=== PATIENT | male | born 1985 | race Caucasian/White ===

== ENCOUNTER 2019-03-07 09:09 | Day surgery (SDC) | payer OTHER ==
[2019-03-07] MEDS ORDERED: Sodium Chloride 0.9% 100 ML ONE (10:17)
[2019-03-07] MEDS ORDERED: cefOXitin 2 GM VIAL ONE (10:17)
[2019-03-07] MEDS ORDERED: Midazolam HCl 2 mg/2 ml Vial ONE (10:29)
[2019-03-07] MEDS ORDERED: Fentanyl 250 MCG/5 ML VIAL ONE (10:29)
[2019-03-07] MEDS ORDERED: Bupivacaine/Epinephrine 0.25% 30 ML VIAL ONE (11:16)
--- NOTE | 2019-03-07 11:26 | HP ---
CHIEF COMPLAINT: Right upper quadrant abdominal pain. HISTORY OF PRESENT ILLNESS: This is a 33-year-old male, who developed severe mid epigastric and right upper quadrant pain about 1:00 a.m. No radiation. He has had previous episodes. This was associated with a lot of nausea. No vomiting. Father had this and had his gallbladder removed when he was younger. Apparently, he has been having some episodic chest pain when he had a cardiac workup that was negative. PAST MEDICAL HISTORY: Otherwise healthy. PAST SURGICAL HISTORY: None. MEDICATIONS: He is on an anxiety medicine p.r.n. and a migraine headache medicine p.r.n. ALLERGIES: NO KNOWN DRUG ALLERGIES. SOCIAL HISTORY: He is . He works for [employer]. No tobacco. Social alcohol. FAMILY HISTORY: Gallbladder problems and heart disease. PHYSICAL EXAMINATION: VITAL SIGNS: Temperature 97.2, pulse 62, blood pressure 130/88. GENERAL: Thin male, in some discomfort. HEENT: No jaundice. LUNGS: Clear. HEART: Regular rate and rhythm. ABDOMEN: Soft, tender in the right upper quadrant. No distention. EXTREMITIES: Unremarkable. LABORATORY DATA: His LFTs are normal. His gallbladder ultrasound showed several small stones in the neck of the gallbladder with some mild wall thickening. ASSESSMENT: Early acute cholecystitis. PLAN: Laparoscopic cholecystectomy. CONSENT: Discussed planned procedure as well as risk of bleeding, infection, injury to bile duct, injury to bowel, need to open. He understands and gives informed consent. Job ID: [id number]
[2019-03-07] MEDS ORDERED: HYDROcodone/Acetaminophen 5/325 mg Tablet ONE (14:51)
[2019-03-07] MEDS ORDERED: Glycopyrrolate 0.2 MG/ML 5 ML SYRINGE ONE (15:49)
[2019-03-07] MEDS ORDERED: Dexamethasone 20 MG/5 ML VIAL ONE (15:49)
[2019-03-07] MEDS ORDERED: Ondansetron PF 4 MG/2 ML Vial ONE (15:49)
[2019-03-07] MEDS ORDERED: Lidocaine 1% PF 5 ML VIAL ONE (15:49)
[2019-03-07] MEDS ORDERED: Rocuronium Bromide 10 MG/ML (10ML VIAL) ONE (15:49)
[2019-03-07] MEDS ORDERED: PROPOFOL 200 MG/20 ML VIAL ONE (15:49)
--- NOTE | 2019-03-07 18:31 | OP ---
DATE OF PROCEDURE: 03/07/2019 PREOPERATIVE DIAGNOSIS: Symptomatic cholelithiasis. PROCEDURE PERFORMED: Laparoscopic cholecystectomy. INDICATIONS: A 33-year-old male, who presented to the emergency room with severe right upper quadrant pain, radiating to back, associated with nausea. Ultrasound showed two small filling defects in the neck of the gallbladder. FINDINGS: He had some adhesions to the lower gallbladder. The cystic duct was of small caliber. DESCRIPTION OF PROCEDURE: After informed consent was obtained, the patient was taken to the operating room, given general endotracheal anesthesia, placed in supine position. Abdomen was prepped and draped in usual fashion. Local anesthesia infiltrated subcutaneously and deep, and a subumbilical incision was performed. Subcu divided sharply. The fascia grasped and two stay sutures of 0 Vicryl placed in each side of midline. The midline incised. Digital palpation revealed no local adhesions. A blunt 12 mm trocar inserted. Pneumoperitoneum was created to a pressure of 15 mmHg. A 0 degree laparoscope inserted under direct vision. Three 5 mm ports were placed subcostally. The gallbladder grasped and advanced superiorly. Peritoneum lysed distally to reveal small cystic duct and artery. These were triply ligated with hemoclips and divided. The gallbladder removed from its fossa utilizing electrocautery, removed from the abdomen through the umbilical port. Hemostasis assured. Trocars and retractors removed. The fascia closed with interrupted 0 Vicryl suture. The skin closed with interrupted 4-0 Rapide. Dermabond applied. The patient tolerated the procedure well, transferred to Recovery in good condition. Sponge and needle count verified correct x2. Job ID: [id number]
--- NOTE | 2019-03-08 17:11 | EKG ---
Test Reason : PREOP Blood Pressure : / mmHG Vent. Rate : 044 BPM Atrial Rate : 044 BPM P-R Int : 146 ms QRS Dur : 088 ms QT Int : 466 ms P-R-T Axes : 067 076 056 degrees QTc Int : 398 ms Marked sinus bradycardia Abnormal ECG Confirmed by EDITA VÁSQUEZ ([id number] on 03/08/2019 5:11:08 PM Referred By: RAND Confirmed By:EDITA VÁSQUEZ
== END 2019-03-07 16:00 | disposition home or self-care (01) ==
LOC: SDC 09:09 → EEVIPCON 09:09 → SDC 16:00
PROVIDERS: ATTEND Surgery
PROC: 0FT44ZZ Resection of Gallbladder, Percutaneous Endoscopic Approach (ICD-10-PCS; principal; 2019-03-07)
DX: K80.12 Calculus of gallbladder with acute and chronic cholecystitis without obstruction (principal); K82.8 Other specified diseases of gallbladder; F41.9 Anxiety disorder, unspecified; G43.909 Migraine, unspecified, not intractable, without status migrainosus
CPT/HCPCS: 88304; 93005; 93010; J0694; J1100; J2001; J2250; J2405; J2704; J3010; J3490

== ENCOUNTER 2019-03-11 21:44 | Emergency (ER) | payer OTHER ==
[~2019-03-11 21:44] MED LIST: Iopamidol 370 76% 100 ML VIAL ONE; Iopamidol 370 76% 50 ML VIAL FS ONE
[2019-03-11] MEDS ORDERED: Ondansetron PF 4 MG/2 ML Vial ONE (22:02)
[2019-03-11 22:20] LABS: #Basophils 0.1 thou/uL (0.0-0.2); #Eosinphils 0.4 thou/uL (0.0-0.7); #Lymphocytes 2.1 thou/uL (1.20-3.40); #Monocytes 0.6 thou/uL (0.11-0.59); #Neutrophils 6.6 thou/uL (1.40-6.50); %Basophils 0.6 % (0.0-1.0); %Eosinophils 3.9 % (0.0-10.0); %Lymphocytes 21.6 % (21.0-51.0); Hemoglobin 12.9 g/dL (14.0-18.0); Mean Corpuscular HGB CONC 31.9 g/dL (32.0-36.0); Mean Corpuscular Hemoglobin 29.3 pg (27.0-31.0); Mean Corpuscular Volume 91.9 fL (78.0-98.0); Mean Platelet Volume 6.9 fL (7.4-10.4); Platelet Count 234 thou/uL (130-400); RBC Distribution Width 11.5 % (11.5-14.5); Red Blood Cell (RBC) Count 4.41 mill/uL (4.70-6.10); White Blood Cell (WBC) Count 9.7 thou/uL (4.8-10.8)
[2019-03-11 22:43] LABS: ALT (SGPT) 25 U/L (8-55); AST (SGOT) 18 U/L (5-34); Albumin 4.3 g/dL (3.5-5.0); Alkaline Phosphatase 29 U/L (40-150); Anion Gap 11 mmol/L (10-20); BUN (Urea Nitrogen) 14 mg/dL (8.9-20.6); Bilirubin, Total 0.5 mg/dL (0.2-1.2); Calc. Creatinine Clearance 0 mL/min (70-130); Carbon Dioxide 28 mmol/L (22-29); Chloride 104 mmol/L (98-107); Estimated GFR-MDRD Greater than 90; Globulin 2.5 g/dL (2.4-3.5); Glucose 104 mg/dL (70-105); Potassium 3.6 mmol/L (3.5-5.1); Protein, Total 6.8 g/dL (6.0-8.3); Sodium 139 mmol/L (136-145)
--- NOTE | 2019-03-12 07:29 | CT ---
ABDOMEN AND PELVIS CT WITH CONTRAST: Date: 03/11/19 INDICATION: Emergency exam performed for near syncope. Pain. FINDINGS: Mild volume loss at the lung bases is present, evidence of prior cholecystectomy. There is free air o f the abdomen, which is within appropriate volume for provided history of recent intra-abdominal surg evelyn. There is mild fluid, as well as fat stranding, related to the patient's recent cholecystectomy. Contrast opacified small bowel is normal in caliber. There is a moderate volume of retained fecal mat erial throughout the colon. Abdominal aorta is normal in caliber. No acute abnormality of the solid a bdominal organs. No retroperitoneal hematoma. Moderate distention of the urinary bladder. Osseous str uctures are intact. IMPRESSION: 1. Pneumoperitoneum correlating to patient's history of recent intra-abdominal surgery. 2. No evidence of bowel obstruction. 3. Mild intra-abdominal ascites and fat stranding. Adjacent cholecystectomy clips correlating to rec ent surgery. No well-formed drainable fluid collection is present. POS: [facility]
== END 2019-03-12 00:55 | disposition home or self-care (01) ==
LOC: ERS 21:44
DX: K59.00 Constipation, unspecified (principal); Z87.891 Personal history of nicotine dependence
CPT/HCPCS: 36415; 74177; 80053; 85025; 96361; 96374; J2405; Q9967